=== PATIENT | female | born 1980 | race Caucasian/White ===

== ENCOUNTER 2019-02-03 07:00 | Emergency (ER) | payer BC ==
--- NOTE | 2019-02-03 07:17 | UC ---
Throat Pain/Nasal Saleem HPI - HPI Summary HPI Summary: 38 yo female with sore throat <6 hrs myalgias, GONZALEZ no n/v hx tonsillectomy - History of Current Complaint Stated Complaint: ST Time Seen by Provider: 02/03/19 07:16 Hx Obtained From: Patient Hx Last Menstrual Period: 10/24/14 Onset/Duration: Gradual Onset, Lasting Hours Severity: Moderate Pain Intensity: 4 Pain Scale Used: 0-10 Numeric Cough: None Related History: T & A - Allergies/Home Medications Allergies/Adverse Reactions: Allergies Allergy/AdvReac Type Severity Reaction Status Date / Time Tetracyclines Allergy Rash Verified 02/03/19 07:13 SteriStrips Allergy Rash Uncoded 02/03/19 07:13 Home Medications: Home Medications Norelgestromin/Ethin.estradiol [Xulane Patch] 1 each TD SEE INSTRUCTIONS [History Confirmed 02/03/19] PMH/Surg Hx/FS Hx/Imm Hx Previously Healthy: Yes - Surgical History Surgical History: Yes Surgery Procedure, Year, and Place: , 02/24/12, [facility]. Tonsillectomy, 2000, [place] - Family History Known Family History: Negative: Cardiac Disease, Hypertension, Diabetes - Social History Alcohol Use: None Substance Use Type: None Smoking Status (MU): Never Smoked Tobacco Review of Systems All Other Systems Reviewed And Are Negative: Yes Constitutional: Positive: Negative Skin: Positive: Negative Eyes: Positive: Negative ENT: Positive: Sore Throat Respiratory: Positive: Negative Cardiovascular: Positive: Negative Gastrointestinal: Positive: Negative Genitourinary: Positive: Negative Motor: Positive: Negative Neurovascular: Positive: Negative Musculoskeletal: Positive: Myalgia Neurological: Positive: Headache Psychological: Positive: Negative Physical Exam Triage Information Reviewed: Yes Appearance: Well-Appearing, No Pain Distress, Well-Nourished Vital Signs Reviewed: Yes Eyes: Positive: Conjunctiva Clear ENT: Positive: Pharyngeal erythema, Uvula midline. Negative: Nasal congestion, Nasal drainage, Tonsillar swelling, Tonsillar exudate, Trismus, Muffled voice, Hoarse voice, Dental tenderness, Sinus tenderness Neck: Positive: Supple, Enlarged Nodes @ - ant cerv, tender Respiratory: Positive: Lungs clear, Normal breath sounds, No respiratory distress, No accessory muscle use Cardiovascular: Positive: RRR, No Murmur Musculoskeletal: Positive: ROM Intact, No Edema Neurological: Positive: Alert Psychological Exam: Normal Throat Pain/Nasal Course/Dx - Course Course Of Treatment: strep + - Differential Dx/Diagnosis Provider Diagnosis: Strep throat Discharge - Sign-Out/Discharge Documenting (check all that apply): Patient Departure All imaging exams completed and their final reports reviewed: No Studies - Discharge Plan Condition: Stable Disposition: HOME Prescriptions: Amoxicillin PO (*) [Amoxicillin 875 MG (*)] 875 mg PO BID #20 tab Patient Education Materials: Strep Throat (ED) Forms: *Work Release Referrals: Vicki Samuel [Primary Care Provider] - If Needed - Billing Disposition and Condition Condition: STABLE Disposition: Home
[2019-02-03 07:18] VITALS: BP 106/60
== END 2019-02-03 07:33 | disposition home or self-care (01) ==
LOC: UCCORT 07:00
DX: J02.0 Streptococcal pharyngitis (principal); Z88.1 Allergy status to other antibiotic agents; Z91.09 Other allergy status, other than to drugs and biological substances
CPT/HCPCS: 87651; 99202; G0463

== ENCOUNTER 2019-09-02 09:15 | Emergency (ER) | payer BC ==
--- OUTSIDE RECORDS SUMMARY | 2019-09-02 09:24 | XMS REPORT ---
:1980 Author Organization [facility] O[facility] Address [address] [place] [address] Care Team Providers Name Role Phone Ratna Skinner Unavailable Unavailable PROBLEMS Type Condition ICD9-CM [id number] Onset Condition SNOMED Code Code Code Dates Status Problem Unspecified R32 Active 033724553 urinary incontinence Problem Urticaria, L50.9 Active 00714886 unspecified Problem Family history of Z80.3 Active 734278786 malignant neoplasm of breast Problem Varicose veins of I83.813 Active [id number] bilateral lower extremities with pain Problem Other specified N89.8 Active 69152618 noninflammatory disorders of vagina Problem Abnormal weight R63.5 Active 067217454 gain ALLERGIES Substance Reaction Event Type Date Status Adhesive rash Drug Allergy Jun, Active tetracycline rash Drug Allergy Jun, Active ENCOUNTERS Encounter Location Date Diagnosis [facility] 103 Jun, OBGYN [place], [place] [id number] [facility] 103 Nov, OBGYN [place], [place] [id number] [facility] 103 Jun, Encounter for OBGYN [facility], gynecological examination [place] [id number] (general) (routine) with abnormal findings Z01.411 ; Family history of malignant neoplasm of breast Z80.3 ; Encounter for screening for malignant neoplasm of cervix Z12.4 ; Unspecified urinary incontinence R32 ; Abnormal weight gain R63.5 ; Other specified noninflammatory disorders of vagina N89.8 and Urticaria, unspecified L50.9 [facility] Nov, Family history of OBGYN [facility], malignant neoplasm of [place] [id number] breast Z80.3 [facility] 103 May, Pelvic and perineal pain OBGYN [facility], R10.2 and Other specified [place] [id number] abnormal uterine and vaginal bleeding N93.8 [facility] 103 May, Pelvic and perineal pain OBGYN [facility], R10.2 and Other specified [place] [address] abnormal uterine and vaginal bleeding N93.8 [facility] 103 May, [facility] and [place] [id number] advice on contraception Z30.09 [facility] 103 May, Encounter for [facility], gynecological examination W[place] [id number] (general) (routine) without abnormal findings Z01.419 ; Family history of malignant neoplasm of breast Z80.3 ; Encounter for screening for malignant neoplasm of cervix Z12.4 ; Pelvic and perineal pain R10.2 ; Other specified abnormal uterine and vaginal bleeding N93.8 and Encounter for other general counseling and advice on contraception Z30.09 [facility] 103 Apr, [facility] counseling and [place] [id number] advice on contraception Z30.09 [facility] 103 Oct, OBGYN [place] [id number] [address] Oct, Varicose veins of [facility] [address] [place], bilateral lower [place] [id number] extremities with pain I83.813 ; Family history of malignant neoplasm of breast Z80.3 and Encounter for other general counseling and advice on contraception Z30.09 [facility] Oct, OBGYN [place], [place] [id number] [facility] 103 Jul, [facility] contraceptive management, [place] [id number] unspecified Z30.9 [facility] 103 May, OBGYN [place], [place] [id number] [facility] 103 May, [place]BGYN [place] [id number] [facility] 103 Apr, Encounter for OBGYN [facility], gynecological examination W[place] [id number] (general) (routine) with abnormal findings Z01.411 ; Encounter for screening for malignant neoplasm of cervix Z12.4 ; Varicose veins of bilateral lower extremities with pain I83.813 and Family history of malignant neoplasm of breast Z80.3 [facility] 103 Apr, OBGYN [place] [id number] [facility] 103 Oct, Encounter for other OBGYN [facility], general counseling and [place] 635381693 advice on contraception Z30.09 [facility] 103 Sep, OBGYN [place] [id number] [facility] 103 Jun, Encounter for other OBGYN [facility], general counseling and [place] [id number] advice on contraception Z30.09 [facility] 103 Jun, OBGYN [place], [place] [id number] [facility] 103 May, Encounter for other OBGYN [facility], general counseling and [place] [address]694670[address] advice on contraception Z30.09 and Encounter for routine checking of intrauterine contraceptive device Z30.431 [facility] 103 March, Encounter for OBGYN [facility], gynecological examination [place] [id number] (general) (routine) with abnormal findings Z01.411 ; Family history of malignant neoplasm of breast Z80.3 ; Encounter for routine checking of intrauterine contraceptive device Z30.431 and Ventral hernia without obstruction or gangrene K43.9 [facility] 103 Apr, IUD SURVEILLANCE V25.42 OBGYN [place] [id number] [facility] 103 March, FAMILY PLANNING V25.09 and OBGYN [facility], encounter for IUD [place] [id number] insertion V25.11 [facility] 103 Feb, [place]BG[place] [id number] [facility] Feb, ROUTINE BOARDINGHOUSE KEEPER EXAMINATION OBGYN [address] [place], V72.31 ; STD Screen V74.5 [place] [id number] and CONTRACEPTIVE MANGMT NOS V25.9 [facility] 103 Feb, CONTRACEPTIVE MANGMT NOS OBGYN [facility], V25.9 [place] [id number] [facility] 103 Feb, FAMILY PLANNING V25.09 OBGYN [place] [id number] [facility] 103 Jul, OBGYN [place] [id number] [facility] 103 Feb, OBGYN [place] [id number] [facility] 103 Feb, Breast Mass 611.72 OBGYN [place], [place] [id number] [facility] 103 Jan, OBGYN [place] [id number] [facility] 103 Jan, ROUTINE BOARDINGHOUSE KEEPER EXAMINATION OBGYN [facility], V72.31 ; Previous W[place] [id number] delivery, delivered 654.21 ; STD Screen V74.5 ; CONTRACEPTIVE MANGMT NOS V25.9 ; FAMILY HX-BREAST MALIG V16.3 and Breast Mass 611.72 [facility] 103 Dec, OBGYN [place], [place] [id number] [facility] 103 Aug, OBGYN [place] [id number] [facility] 103 Nov, ROUTINE BOARDINGHOUSE KEEPER EXAMINATION OBGYN [facility], V72.31 ; FAMILY PLANNING W[place] [id number] V25.09 and PAP SMEAR W/O BOARDINGHOUSE KEEPER EXAM V76.2 [facility] 103 March, ROUT POSTPART FOLLOW -UP OBGYN [facility], V24.2 ; FAMILY PLANNING W[place] [id number] V25.09 ; DELIV NOS-UNSP 669.70 and Previous delivery, delivered 654.21 [facility] 103 16 Feb, 2012 Rash and other nonspecific OBGYN [facility], skin eruption 782.1 [place] [id number] [facility] 103 Feb, OBGYN [place] [id number] [address] Feb, DELIV NOS- UNSP OBGYN Road [address] [place], 669.70 ; Previous [place] [id number] delivery, delivered 654.21 ; FAMILY PLANNING V25.09 and Yeast infection 112.9 [facility] 103 Feb, OBGYN [place], [place] [id number] [facility] 103 Feb, OBGYN [place], [place] [id number] [facility] 103 Jan, OBGYN [place] [id number] [facility] 103 Jan, OBGYN [place], [place] [id number] [facility] 103 Jan, SCREENING OBGYN [facility]. V28.9 [place] [id number] [facility] 103 Jan, OBGYN [place], [place] [id number] [facility] 103 Jan, POST TERM PREG- ANTEPAR OBGYN [facility], 645.13 and [place], [place] [id number] antepartum 657.03 [facility] 103 Jan, OBGYN [place], [place] [id number] [facility] 103 Jan, [place] [id number] [facility] 103 Jan, [place] [address] [facility] 103 Jan, [place] [id number] [facility] 103 Jan, [place] [id number] [facility] 103 Jan, [place] [id number] [facility] 103 Jan, [place] [id number] [facility] 103 Jan, [place] [id number] [facility] 103 Jan, [place] [id number] [facility] 103 Jan, [place] [id number] [facility] 103 Jan, [facility], UNSPEC. V28.9 and [place] [id number] [place], antepartum 657.03 [facility] 103 Jan, [place]hydramnios, [facility]partum [facility], 657.03 [place] [id number] [facility] 103 Dec, [place] [id number] [facility] 103 Dec, [place]BG[place] [id number] [facility] 103 Dec, [place], [place] [id number] [facility] 103 Dec, Polyhydramnios, antepartum OBGYN [facility], 657.03 [place] [id number] [facility] 103 Dec, [place], [place] [id number] [facility] 103 Dec, SCREENING NOS OBGYN [facility], V28.9 [place] [id number] [facility] 103 Dec, Polyhydramnios, antepartum OBGYN [facility], 657.03 [place] [id number] [facility] 103 Dec, OBG[place] [address] [facility] 103 Dec, OBG[place], [place] [id number] [facility] 103 Dec, OBG[place], [place] [id number] [facility] 103 Dec, SIZE/DATE DISCREP ANTEPART OBGYN [facility], 649.63 and [place], [place] [id number] antepartum 657.03 [facility] 103 Dec, SCREENING OBGYN [facility], UNSPEC. V28.9 and [place] [id number] SIZE/DATE DISCREP ANTEPART 649.63 [facility] 103 Nov, SCREENING OBGYN [facility], UNSPEC. V28.9 [place] [id number] [facility] 103 Nov, OBG[place] [id number] [facility] 103 Nov, SCREENING OBGYN [facility], UNSPEC. V28.9 [place] [id number] [facility] 103 Oct, SCREENING OBGYN [facility], UNSPEC. V28.9 and RH [place] [id number] ISOIMMUNIZAT-ANTEPART 656.13 [facility] 103 Sep, OBGYN [facility], [place] [id number] [facility] 103 Sep, SCREENING OBGYN [facility], UNSPEC. V28.9 [place] [id number] [facility] 103 Aug, SCREENING OBGYN [facility], UNSPEC. V28.9 [place] [id number] [facility] 103 Aug, US-SCREEN ANOMALIES V28.3 OBGYN [facility], and [place] [id number] PRESENT-ANTEPART 652.23 [facility] 103 Aug, OBGYN [facility], [place] [id number] [facility] Jul, SCREENING OBGYN [facility], UNSPEC. V28.9 [place] [id number] [facility] 103 Jul, SCREENING OBGYN [facility], UNSPEC. V28.9 [place] [id number] [facility] 103 Jun, O[place], [place] [id number] [facility] 103 Jun, OBGYN [facility], [place] [id number] [facility] 103 Jun, Suppression menstruation OBGYN [facility], 626.8 and [place] [id number] TEST-POSITIVE V72.42 [facility] 103 Apr, CONTRACEPT SURVEILL NOS OBGYN [facility], V25.40 [place] [id number] [facility] 103 Feb, OBG[place] [id number] [facility] 103 Dec, Candidal vulvovaginitis OBGYN [facility], 112.1 [place] [id number] [facility] 103 Dec, ROUTINE BOARDINGHOUSE KEEPER EXAMINATION OBN [facility], V72.31 ; Urinary tract [place] 248479731 infection NOS 599.0 ; Breast Mass 611.72 ; FAMILY PLANNING V25.09 ; Mastalgia 611.71 ; 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 and FAMILY HX-BREAST MALIG V16.3 [facility] 103 May, OBG[place] [id number] [facility] 103 May, ROUT POSTPART FOLLOW -UP OBGYN [facility], V24.2 and FAMILY PLANNING [place] [id number] V25.09 [facility] 103 Apr, OBG[place], [place] [id number] [facility] 103 Apr, [place], [place] [id number] [facility] 103 Apr, [place]BG[place] [id number] [facility] 103 Apr, SCREENING OBGYN [facility], UNSPEC. V28.9 [place] [id number] [facility] 103 Apr, [place] [id number] [facility] 103 Apr, [place], [place] [id number] [facility] 103 March, SCREENING OBGYN [facility], UNSPEC. V28.9 [place] [id number] [facility] 103 March, SCREENING OBGYN [facility], UNSPEC. V28.9 [place] [id number] [facility] 103 March, SCREENING OBGYN [facility], UNSPEC. V28.9 [place] [id number] [facility] 103 March, SCREENING OBGYN [facility], UNSPEC. V28.9 [place] [id number] [facility] 103 March, SCREENING OBGYN [facility], UNSPEC. V28.9 [place] [id number] [facility] 103 Feb, SCREENING OBGYN [facility], UNSPEC. V28.9 [place] [id number] [facility] 103 Jan, SCREENING OBGYN [facility], UNSPEC. V28.9 and [place] [id number] Abdominal pain, right upper quadrant 789.01 [facility] 103 Jan, Uterine size-date OBGYN [facility], discrepancy-antepartum [place] [id number] 646.83 [facility] 103 Jan, SCREENING OBGYN [facility], UNSPEC. V28.9 ; RH [place] [id number] ISOIMMUNIZAT-ANTEPART 656.13 and SIZE/DATE DISCREP ANTEPART 649.63 [facility] 103 Jan, OBGYN [facility], [place] [id number] [facility] 103 Dec, OBGYN [facility], [place] [id number] [facility] 103 Dec, SCREENING NOS OBGYN [facility], V28.9 [place] [id number] [facility] 103 Dec, Other placental condition, OBGYN [facility], unspecified 656.70 [place] [id number] [facility] 103 13 Nov, 2008 SCREENING NOS OBN [facility], V28.9 ; Placenta previa [place] [id number] 762.0 and Abdominal pain, right upper quadrant 789.01 [facility] 103 13 Nov, 2008 Other placental condition, [facility], antepartum 656.73 and [place] [id number] US-SCREEN ANOMALIES V28.3 [facility] 103 Oct, SCREENING NOS OBGYN [facility], V28.9 and BLEEDING IN [place] [id number] EARLY PREG. ANTEPARTUM CONDITION 640.93 [facility] 103 Oct, BLEEDING IN EARLY PREG. [facility], ANTEPARTUM CONDITION [place] [id number] 640.93 [facility] 103 Oct, BLEEDING IN EARLY PREG. [facility], ANTEPARTUM CONDITION [place] [id number] 640.93 [facility] 103 Oct, [place] [id number] [facility] 103 Sep, SCREENING OBN [facility], UNSPEC. V28.9 [place] [id number] [facility] 103 Sep, [place] [id number] [facility] 103 Sep, [facility], V28.9 [place] [id number] [facility] 103 Sep, OBG[place] [id number] [facility] 103 Aug, THREATEN ABORT- ANTEPART OBGYN [facility], 640.03 and Suppression [place] 511830169 menstruation 626.8 [facility] 103 Aug, THREATEN ABORT- ANTEPART OBGYN [facility], 640.03 [place] [id number] [facility] 103 Aug, Suppression menstruation OBGYN [facility], 626.8 and THREATEN [place] [id number] ABORT-ANTEPART 640.03 [facility] 103 May, Acute vaginitis 616.10 OBG[place] [id number] [facility] 103 Jan, [place], [place] [id number] [facility] 103 Dec, ROUTINE BOARDINGHOUSE KEEPER EXAMINATION [facility], V72.31 and SKIN DISORDER W[place] [id number] NOS 709.9 [facility] 103 Dec, [place]BG[place], [place] [id number] [facility] 103 Sep, Vaginitis 616.10 OBN [place] [id number] [facility] 103 Jun, OBG[place], [place] [id number] [facility] 103 Dec, Pap Smear to confirm [facility], findings of recent normal [place] [id number] smear following initial abnormal smear V72.32 [facility] 103 Nov, [place]BG[place] [id number] [facility] 103 Nov, Acute vaginitis 616.10 OBN [place] [id number] [facility] 103 Jun, ROUTINE BOARDINGHOUSE KEEPER EXAMINATION OBN [facility], V72.31 ; Cervical [place] [id number] dysplasia, mild 622.11 ; PAP SMEAR (ASC-US) 795.01 and Condyloma acuminatum 078.11 [facility] 103 Apr, VAGINAL DISCHARGE 623.5 OBGYN [place], [place] [id number] [facility] 103 Nov, Well Adult exam V 70.0 ; OBGYN [facility], ROUTINE BOARDINGHOUSE KEEPER EXAMINATION W[place] [id number] V72.31 ; Cervical dysplasia, mild 622.11 and Pap Smear to confirm findings of recent normal smear following initial abnormal smear V72.32 UNKNOWN Sep, IMMUNIZATIONS No Known Immunizations SOCIAL HISTORY Never Assessed REASON FOR REFERRAL FUNCTIONAL STATUS PLAN OF CARE Activity Details Follow Up 1 Year Annual Exam, 6 Months CBE Reason: Pending Test UA RFX MICRO & CULTURE II Pending Test AFFIRM VAGINITIS PANEL Pending Test THYROID STIM HORMONE Pending Test FREE T4 Pending Test URINE CULTURE VITAL SIGNS Temperature 97.8 degrees Fahrenheit 2019-07-05 Height 65 in 2019-07-05 Weight 147 lbs 2019-07-05 BMI 24.46 kg/m2 2019-07-05 Blood pressure systolic 100 mm Hg 2019-07-05 Blood pressure diastolic 68 mm Hg 2019-07-05 MEDICATIONS Medication Instructions Dosage Frequency Start End Date Duration Status Date Ortho Evra topically q week 1 patch q Apr, 84 days Active Patch 0.75 mg/6 x 3 week x 3 2017 mg weeks, then off 1 week PROCEDURES Procedure Date Ordered Result Body Site VENIPUNCT, ROUTINE* Jul 05, 2019 RESULTS No Results REASON FOR VISIT Annual eXam, My Risk?, Check varicosities, outbreak of hives since Wednesday Insurance Providers Pending Sale To [facility] Member Patient Patient Patient Patient Patient Subscriber Subscriber Subscriber Group Insurance Plan Plan Plan Plan ID Relationship Address Phone Name Date of ID Name Date of No Type Insurance Insurance Insurance Coverage to Subscriber Address Phone Name Dates [employer] [address] [employer] self Dianne 1980 [id number] Blue [id number] 89 Blue Naeem 2 Cross/Blue [place] Cross/Blue Shield [address] Shield Blue Cross [address] Blue Cross self Dianne 1980 [id number] Blue [id number] 89 Blue Naeem 1 0 [place] [facility] [place] [address] Blue [address]- Blue self Dianne [id number] Cross/Blue 56076 16 Cross/Blue Naeem 1 Shield [facility] [address] [employer] [phone] [employer] self Dianne [id number] Blue [id number] 89 Blue Naeem 4 Cross/Blue [place] Cross/Blue Shield [address] [facility] MEDICAL (GENERAL) HISTORY Type Description Date Surgical History Tonsillectomy 05/2001 Surgical History 2011 Hospitalization History hemorraghing from tonsil removal 05/2001 Hospitalization History dehydration/exhaustion 06/2000 Hospitalization History childbirth 05/07 Hospitalization History 2011
[2019-09-02 09:29] VITALS: BP 96/51
--- NOTE | 2019-09-02 09:30 | UC ---
Complaint Female HPI - HPI Summary HPI Summary: 39 year old female with no PMH, h/o UTI ~ 15 years ago, no STD risk, presents with urinary frequency, burning, hematuria since this AM. no flank pain, no fever/ chills. No recent abx use. on topical BC, took patch off yesterday - History Of Current Complaint Stated Complaint: URINARY COMPLAINT Time Seen by Provider: 09/02/19 09:27 Hx Obtained From: Patient Hx Last Menstrual Period: 10/24/14 Onset/Duration: Sudden Onset, Lasting Hours Timing: Constant Severity Initially: Moderate Severity Currently: Moderate Pain Intensity: 5 Pain Scale Used: 0-10 Numeric Character: Sharp, Burning, Cramping Aggravating Factor(s): Urination Alleviating Factor(s): Other Associated Signs And Symptoms: Negative: Fever, Back Pain, Vaginal Bleeding/ Discharge, Vaginal Discharge, Nausea, Genital Swelling, Genital Blisters, Retained Foregin Body (Specify) - Allergies/Home Medications Allergies/Adverse Reactions: Allergies Allergy/AdvReac Type Severity Reaction Status Date / Time Tetracyclines Allergy Rash Verified 09/02/19 09:25 SteriStrips Allergy Rash Uncoded 09/02/19 09:25 PMH/Surg Hx/FS Hx/Imm Hx Previously Healthy: Yes - Surgical History Surgical History: Yes Surgery Procedure, Year, and Place: , 02/24/12, [facility]. Tonsillectomy, 2000, [place] - Family History Known Family History: Positive: Non-Contributory Negative: Cardiac Disease, Hypertension, Diabetes - Social History Alcohol Use: Occasionally Substance Use Type: None Smoking Status (MU): Never Smoked Tobacco Review of Systems All Other Systems Reviewed And Are Negative: Yes Constitutional: Negative: Fever, Chills, Fatigue Gastrointestinal: Negative: Abdominal Pain, Vomiting, Diarrhea, Nausea Genitourinary: Positive: Dysuria, Hematuria, Frequency, Urgency. Negative: Vaginal/Penile Burning, Vaginal/Penile Itching, Vaginal/Penile Discharge, Vaginal/Penile Pain, Vaginal/Penile Tenderness, Ulceration/Lesion Motor: Positive: Negative Neurological: Positive: Negative Is Patient Immunocompromised?: No Physical Exam Triage Information Reviewed: Yes Appearance: Well-Appearing, No Pain Distress, Well-Nourished Vital Signs: Initial Vital Signs Temp 97.6 F 09/02/19 09:25 Pulse 58 09/02/19 09:25 Resp 14 09/02/19 09:25 BP 96/51 09/02/19 09:25 Pulse Ox 100 09/02/19 09:25 Vital Signs Reviewed: Yes Eyes: Positive: Conjunctiva Clear ENT: Positive: Hearing grossly normal Abdomen Description: Positive: No Organomegaly, Soft, Bruit, Other: - + moderate suprapubic TTP, other exam negative. Negative: CVA Tenderness (R), CVA Tenderness (L), Distended, Guarding Neurological Exam: Normal Psychological Exam: Normal Complaint Female Dx - Course Course Of Treatment: UTI - UA + cultures sent - Increase fluid intake to decrease symtpoms, prevent blood clots, encourage healing - Antibiotics as directed- may stop at 3 days if symptom free x 24 hours, otherwise continue full 5 day course - Tylenol for spasms, pain - GO to ER with no urination x 5 hours, increased pain, fever > 102, flank pain - Differential Dx/Diagnosis Differential Diagnosis/HQI/PQRI: Pelvic Inflammatory Disease, Urinary Tract Infection Provider Diagnosis: UTI (urinary tract infection) Discharge ED - Sign-Out/Discharge Documenting (check all that apply): Patient Departure All imaging exams completed and their final reports reviewed: No Studies - Discharge Plan Condition: Good Disposition: HOME Prescriptions: Sulfamethox/Trimethoprim DS* [Bactrim DS 800/160 TAB*] 1 tab PO BID #10 tab Patient Education Materials: Urinary Tract Infection in Women (ED) Referrals: Vicki Samuel [Primary Care Provider] - Additional Instructions: - Increase fluid intake to decrease symtpoms, prevent blood clots, encourage healing - Antibiotics as directed- may stop at 3 days if symptom free x 24 hours, otherwise continue full 5 day course - Tylenol for spasms, pain - GO to ER with no urination x 5 hours, increased pain, fever > 102, flank pain - Billing Disposition and Condition Condition: GOOD Disposition: Home - Attestation Statements Provider Attestation: Per institutional requirements, I have reviewed the chart, however, I was not consulted specifically or made aware of this patient by the midlevel provider. I did not personally evaluate, interact with , or disposition this patient.
== END 2019-09-02 09:50 | disposition home or self-care (01) ==
LOC: UCCORT 09:15
DX: N39.0 Urinary tract infection, site not specified (principal); Z88.1 Allergy status to other antibiotic agents; Z91.09 Other allergy status, other than to drugs and biological substances
CPT/HCPCS: 81003; 84702; 87077; 87086; 87186; 99212; G0463